=== PATIENT | female | born 1970 | race Caucasian/White ===

== ENCOUNTER → 2017-01-13 | Outpatient (CLI) | payer OTHER ==
[~2017-01-13] MED LIST: CLONAZEPAM1 MG PO; EFFEXOR XR75 MG PO; EFFEXOR75 MG; KLONOPIN0.5 MG; KLONOPIN1 MG PO; NORVASC10 MG PO; NORVASC5 M1 PO; PERCOCET 5/31 TABLET PO; TRAMADOL HCL50 MG PO; ULTRAM50 MG
== END | disposition home or self-care (01) ==
LOC: CDC 11:56
DX: M48.02 Spinal stenosis, cervical region (principal); M47.12 Other spondylosis with myelopathy, cervical region; M54.2 Cervicalgia
CPT/HCPCS: 93000

== ENCOUNTER 2017-05-05 05:23 | Emergency (ER) | payer OTHER ==
[~2017-05-05] VITALS: Ht 172.7 cm; Wt 74.4 kg
[2017-05-05 06:19] LABS: HEMATOCRIT 43.6 % (36.0-46.0); MCH 34.6 PG (29.0-34.0); MCHC 34.2 G/DL (30.0-36.0); MCV 101.2 FL (83-99); MEAN PLAT.VOLUME 9.1 uM^3 (9.5-12.4); PLATELET COUNT 277 K/uL (156-360); RBC DIS.WIDTH-CV 11.6 % (11.8-14.6); RBC DIS.WIDTH-SD 43.6 % (39-53); RED BLOOD COUNT 4.31 M/uL (3.80-5.20); WHITE BLOOD COUNT 9.1 K/uL (4.1-10.2)
[2017-05-05 06:36] LABS: CHLORIDE 104 mEq/L (99-109); POTASSIUM 4.2 mEq/L (3.7-5.4); SODIUM 140 mEq/L (136-147)
[2017-05-05 06:37] LABS: GLUCOSE 94 mg/dL (70-99)
[2017-05-05 06:39] LABS: ANION GAP 12 MEQ/L (2-14)
[2017-05-05 06:41] LABS: GFR ESTIMATE (CALCULATED) > 59 mL/min/
[2017-05-05 06:42] LABS: UREA NITROGEN (BUN) 18 mg/dL (9-23)
[2017-05-05] MEDS ORDERED: CLONAZEPAM1 MG PO (07:04)
[2017-05-05] MEDS ORDERED: GABAPENTIN800 MG PO (07:04)
[2017-05-05] MEDS ORDERED: TIZANIDINE HCL4 MG PO (07:05)
[2017-05-05] MEDS ORDERED: ZITHROMAX Z-PA250 MG PO (07:14)
[2017-05-05 07:27] VITALS: BP 170/118
== END 2017-05-05 07:28 | disposition home or self-care (01) ==
LOC: EME 05:23
DX: J40 Bronchitis, not specified as acute or chronic (principal); K21.9 Gastro-esophageal reflux disease without esophagitis; I10 Essential (primary) hypertension; F41.9 Anxiety disorder, unspecified; F32.9 Major depressive disorder, single episode, unspecified; F17.200 Nicotine dependence, unspecified, uncomplicated; Z88.8 Allergy status to other drugs, medicaments and biological substances
CPT/HCPCS: 71020; 80048; 85027; 99281; 99284

== ENCOUNTER 2017-05-25 14:25 | Emergency (ER) | payer OTHER ==
[~2017-05-25] VITALS: Ht 172.7 cm; Wt 73.7 kg
[~2017-05-25 14:25] MED LIST changes: +GABAPENTIN800 MG PO; +TIZANIDINE HCL4 MG PO; +ZITHROMAX Z-PA250 MG PO
[2017-05-25] MEDS ORDERED: MOTRIN800 MG PO (17:27)
[2017-05-25 17:41] VITALS: BP 150/80
== END 2017-05-25 17:50 | disposition home or self-care (01) ==
LOC: EME 14:25
DX: S00.33XA Contusion of nose, initial encounter (principal); S90.32XA Contusion of left foot, initial encounter; M54.2 Cervicalgia; Y09 Assault by unspecified means; I10 Essential (primary) hypertension; K21.9 Gastro-esophageal reflux disease without esophagitis; F41.9 Anxiety disorder, unspecified; F17.200 Nicotine dependence, unspecified, uncomplicated; F32.9 Major depressive disorder, single episode, unspecified
CPT/HCPCS: 70450; 70486; 72125; 73630; 99281; 99284

== ENCOUNTER → 2017-08-13 | Outpatient (CLI) | payer OTHER ==
[~2017-08-13] MED LIST changes: +MOTRIN800 MG PO
== END | disposition home or self-care (01) ==
LOC: CDC 11:41
DX: Z01.810 Encounter for preprocedural cardiovascular examination (principal); M48.02 Spinal stenosis, cervical region; M54.2 Cervicalgia; M54.12 Radiculopathy, cervical region
CPT/HCPCS: 93000

== ENCOUNTER 2017-08-25 11:44 | Day surgery (SDC) | payer OTHER ==
[~2017-08-25] VITALS: Ht 172.7 cm; Wt 76.1 kg
[~2017-08-25 11:44] MED LIST changes: +ENBREL50 MG/1 M1 SC; +INDERAL LA120 MG PO; +MOBIC15 MG PO; +NEURONTIN800 MG PO; +PERCOCET 10/1 TABLET PO; -PERCOCET 5/31 TABLET PO; +RANITIDINE HCL300 MG PO; +VITAMIN D31000 UNIT PO
[2017-08-25 12:27] VITALS: BP 133/84
[2017-08-25 16:49] VITALS: BP 127/84
[2017-08-25 17:45] VITALS: BP 112/79
[2017-08-25 18:00] VITALS: BP 116/79
== END 2017-08-25 18:05 | disposition home or self-care (01) ==
LOC: SDC 11:44
DX: M48.02 Spinal stenosis, cervical region (principal); M54.12 Radiculopathy, cervical region; M99.01 Segmental and somatic dysfunction of cervical region; G89.4 Chronic pain syndrome; M54.2 Cervicalgia; M79.601 Pain in right arm; M79.7 Fibromyalgia; K21.9 Gastro-esophageal reflux disease without esophagitis; I10 Essential (primary) hypertension; Z88.5 Allergy status to narcotic agent; Z82.49 Family history of ischemic heart disease and other diseases of the circulatory system; Z83.3 Family history of diabetes mellitus; Z80.6 Family history of leukemia; F17.200 Nicotine dependence, unspecified, uncomplicated
CPT/HCPCS: 72020; 76000; C1713; J0131; J0461; J0690; J1100; J1170; J1885; J2250; J2405; J3010

== ENCOUNTER 2017-11-11 08:05 | Emergency (ER) | payer OTHER ==
[~2017-11-11] VITALS: Ht 172.7 cm; Wt 70.3 kg
[2017-11-11 09:03] LABS: BASOPHIL (%) 0.7 % (0-1); BASOPHIL COUNT 0.1 K/uL (0-0.1); EOSINOPHIL (%) 1.1 % (0-5); EOSINOPHIL COUNT 0.1 K/uL (0-0.3); HEMATOCRIT 41.7 % (36.0-46.0); IMMATURE GRANULOCYTE (%) 0.2 % (0.0-0.7); LYMPHOCYTE (%) 26.5 % (15-42); LYMPHOCYTE COUNT 2.4 K/uL (1.0-2.8); MCH 33.3 PG (29.0-34.0); MCV 92.5 FL (83-99); MONOCYTE (%) 11.9 % (3-12); MONOCYTE COUNT 1.1 K/uL (0-0.8); NEUTROPHIL (%) 59.6 % (45-76); NEUTROPHIL COUNT 5.4 K/uL (1.8-6.4); PLATELET COUNT 220 K/uL (156-360); RBC DIS.WIDTH-CV 11.8 % (11.8-14.6); RBC DIS.WIDTH-SD 39.7 % (39-53); RED BLOOD COUNT 4.51 M/uL (3.80-5.20)
[2017-11-11 09:36] LABS: CHLORIDE 103 mEq/L (99-109); POTASSIUM 3.8 mEq/L (3.7-5.4); SODIUM 137 mEq/L (136-147)
[2017-11-11 09:38] LABS: GLUCOSE 99 mg/dL (70-99)
[2017-11-11 09:42] LABS: CREATININE 0.6 mg/dL (0.6-1.3); GFR ESTIMATE (CALCULATED) > 59 mL/min/
[2017-11-11 09:43] LABS: UREA NITROGEN (BUN) 6 mg/dL (9-23)
[2017-11-11 09:47] LABS: TROP-I INTERPRETATION NEGATIVE; TROPONIN-I < 0.01 ng/mL (0.0-0.30)
[2017-11-11 10:21] VITALS: BP 94/66
== END 2017-11-11 10:21 | disposition home or self-care (01) ==
LOC: EME → EDBD 08:05 → EME 08:05
PROVIDERS: Emergency Medicine
DX: R07.89 Other chest pain (principal); F41.9 Anxiety disorder, unspecified; F17.200 Nicotine dependence, unspecified, uncomplicated; Z88.5 Allergy status to narcotic agent
CPT/HCPCS: 71045; 80048; 84484; 85025; 93005; 99281; 99284